=== PATIENT | male | born 1975 | race Caucasian/White ===

== ENCOUNTER 2022-08-04 10:18 | Emergency (ER) | payer OTHER, SELFPAY ==
[2022-08-04 10:21] VITALS: BP 149/94; PULSE 64; RESP 14; TEMP 36.7; O2SAT 99; BMI 34.0
[2022-08-04 11:00] VITALS: BP 127/88; PULSE 79; RESP 29; O2SAT 96
--- NOTE | 2022-08-04 11:03 | ED.CHESTPAIN ---
HPI - Chest Pain General Chief Complaint: Chest Pain Stated Complaint: Chest pain Time Seen by Provider: 08/04/22 10:50 History of Present Illness HPI narrative: This 46-year-old male comes in reporting some chest discomfort that he had encountered at about 2:00 a.m., 9 hours ago. He states that he woke up and had some discomfort along the parasternal area of his chest. He was able to change position and his symptoms improved. He awoke this morning and has some mild discomfort that he states is reproducible with certain movements or position. He denies having any nausea, vomiting, lightheadedness, shortness of breath, or diaphoresis. He states that he has good exercise tolerance. He does not have any chest discomfort when exerting himself. He does not report any recent injury event or strenuous activity. He states that his blood pressure and cholesterol are borderline. He is not taking any medications. He does not have diabetes or family history of heart disease. Related Data Home Medications Medication Instructions Recorded Confirmed loratadine 10 mg tablet 10 mg PO QDAY 02/17/22 02/17/22 Allergies Allergy/AdvReac Type Severity Reaction Status Date / Time No Known Allergies Allergy Unknown Verified 02/17/22 07:31 Review of Systems Status of ROS Reports: 10 or more systems reviewed and unremarkable except as noted in History and below Narrative Constitutional: No fevers, no weight gain or loss. Eyes: No discharge. No vision changes. HENT: No congestion, no sore throat, no ear pain. Cardiovascular: No palpitations. Chest discomfort as described above. Respiratory: No shortness of breath, no wheezes, no cough. Gastrointestinal: No abdominal pain, no vomiting, no diarrhea. Genitourinary: No dysuria, no hematuria. Musculoskeletal: Normal range of motion. Skin: No rashes, no pruritis. Neurological: No dizziness, weakness, sensory change, speech change. Endo/Heme/Allergies: No bruising or bleeding. No polydipsia. Pysch: no suicidality, no anxiety, no insomnia. All other systems reviewed and are negative. [facility] Surgical History (Updated 02/14/22 @ 08:38 by Tracy Bunn) History of appendectomy Family History (Updated 02/28/22 @ 14:33 by Jovon Flynn) Father Graves disease Asthma Brother Asthma Family/Other High blood pressure Lung cancer Other Thyroid disease Social History (Updated 02/17/22 @ 07:52 by Yordy Sweeney MD) Narrative: SOCIAL HISTORY: He is . He works as a software applications specialist. Mainly from home now. He has a 5-year-old son. He is sexually active. Exercise now is 2-3 days per week walking. Host friend x 4 yrs - associated stress. HABITS: No tobacco or recreational drug use. Alcohol use is about 3 drinks per week. Smoking Status: Smoker, status unknown Do you use any of these nicotine containing products: None Second hand tobacco smoke exposure: No How often do you have a drink containing alcohol: never How often do you have six or more drinks on one occasion: Never AUDIT-C Alcohol total score: 0 Non-prescribed substance use: denies use Little interest or pleasure in doing things: several days Feeling down, depressed, or hopeless: several days Exam Narrative Exam Narrative: Constitutional: Well-developed, well-nourished, no acute distress. HEENT: Normocephalic, atraumatic. Neck: Normal range of motion. Nontender. Supple. Heart: Regular. No murmurs. Normal rate. Intact distal pulses. Lungs: Clear to auscultation. No chest discomfort. No wheezes, rhonchi, or rales. Abdomen: Normal bowel sounds. Nontender. No rebound tenderness. Genitalia: Deferred. Back: No midline tenderness. Normal range of motion. Extremities: Normal range of motion. No injury. Skin: Intact. No rash. Warm. No erythema or pallor. Neurologic: No altered sensation. No weakness. Alert and oriented. Psychiatric: No suicidality. No anxiety or depression. No insomnia. Nursing notes and vitals signs are reviewed. Const Vital Signs, click to edit/add: Vital Signs - 24 hr 08/04/22 10:21 Temperature 98.1 F Pulse Rate [Right Pulse Oximeter] 64 Respiratory Rate 14 Blood Pressure [Right Upper Arm] 149/94 H Pulse Oximetry 99 Oxygen Delivery Method Room Air Course Vital Signs Vital signs: Initial Vital Signs Temperature 98.1 F 08/04/22 10:21 Temperature Source Temporal Artery Scan 08/04/22 10:21 Pulse Rate 64 08/04/22 10:21 Respiratory Rate 14 08/04/22 10:21 Blood Pressure 149/94 H 08/04/22 10:21 Blood Pressure Mean 112 08/04/22 10:21 Blood Pressure Position Sitting 08/04/22 10:21 Pulse Oximetry 99 08/04/22 10:21 Oxygen Delivery Method 08/04/22 10:21 Vital Signs Temperature 98.1 F 08/04/22 10:21 Pulse Rate 64 08/04/22 10:21 Respiratory Rate 14 08/04/22 10:21 Blood Pressure 149/94 H 08/04/22 10:21 Pulse Oximetry 99 08/04/22 10:21 Oxygen Delivery Method 08/04/22 10:21 Temperature 98.1 F 08/04/22 10:21 Pulse Rate 64 08/04/22 10:21 Respiratory Rate 14 08/04/22 10:21 Blood Pressure 149/94 H 08/04/22 10:21 Pulse Oximetry 99 08/04/22 10:21 Oxygen Delivery Method 08/04/22 10:21 MDM - Chest Pain MDM Narrative Medical decision making narrative: This patient comes in with some chest discomfort as described above. His EKG is completely normal. His troponin returns at 0. Other lab results also are all within normal range. This patient's pain is minimal and it is somewhat reproducible with certain positions indicating likelihood of chest wall pain. This was reassuring to the patient. He is okay to be discharged home and instructed to return if worsening symptoms occur. Lab Data Labs: Lab Results 08/04/22 08/04/22 08/04/22 Range/Units 11:55 11:55 12:05 WBC 5.99 (4.50-11.00) K/uL RBC 4.59 (4.30-5.90) m/uL Hgb 13.6 (13.5-17.5) gm/dL Hct 40.3 (37.0-53.0) % MCV 88 (80-100) fL MCH 30 (26-34) pg MCHC 34 (32-36) gm/dL RDW Coeff of Leann 14.0 (11.5-15.5) % Plt Count 314 (140-440) K/uL Neut % (Auto) 56.0 (42.0-72.0) % Lymph % (Auto) 33.9 (20-44) % Sibley % (Auto) 6.2 (0.0-11.0) % Eos % (Auto) 3.2 (0.0-7.0) % Baso % (Auto) 0.7 (0.0-3.0) % Neut # (Auto) 3.36 (1.7-7.0) K/uL Lymph # (Auto) 2.03 (0.90-2.90) K/uL Sibley # (Auto) 0.40 (0.00-0.90) K/UL Eos # (Auto) 0.19 (0.00-0.50) K/uL Baso # (Auto) 0.04 (0.00-0.30) K/uL Sodium 139 (135-149) mmol/L Potassium 4.3 (3.6-5.1) mmol/L Chloride 107 (96-114) mmol/L Carbon Dioxide 24 (20-32) mmol/L BUN 14 (5-24) mg/dL Creatinine 0.7 (0.5-1.5) mg/dL Estimated Creat Clear 134.67 Estimated GFR 117 ml/min Glucose 104 (60-115) mg/dL Calcium 8.9 (8.4-10.6) mg/dL POC Troponin I 0.00 L (0.01-0.04) ng/ml ECG Data Attestation: I personally reviewed and interpreted this ECG as follows: Interpretation: Normal sinus rhythm. Rate is 64 beats per minute. There are no ST or T-wave abnormalities. Discharge Plan Discharge Clinical Impression: Atypical chest pain Patient Disposition: Home, Self-Care Condition: Stable Additional Instructions: Take [id number] medications as needed and indicated. Follow up with MD or return if worsening. Prescriptions: No Action loratadine 10 mg tablet 10 mg PO QDAY Follow Up/Referrals: Yordy Sweeney MD [Primary Care Provider] - Stand Alone Forms: [employer] Info Instructions
[2022-08-04 11:30] VITALS: BP 124/86; PULSE 54; RESP 17; O2SAT 96
[2022-08-04 12:00] VITALS: BP 120/85; PULSE 62; RESP 17; O2SAT 94
[2022-08-04 12:07] LABS: Basophils Absolute Auto 0.04 K/uL (0.00-0.30); Basophils Percent Auto 0.7 % (0.0-3.0); Eosinophils Absolute Auto 0.19 K/uL (0.00-0.50); Eosinophils Percent Auto 3.2 % (0.0-7.0); Hematocrit 40.3 % (37.0-53.0); Hemoglobin* 13.6 gm/dL (13.5-17.5); Lymphocytes Absolute Auto 2.03 K/uL (0.90-2.90); Lymphocytes Percent Auto 33.9 % (20-44); Mean Corpuscular HGB Conc 34 gm/dL (32-36); Mean Corpuscular Hemoglobin 30 pg (26-34); Mean Corpuscular Volume 88 fL (80-100); Monocytes Percent Auto 6.2 % (0.0-11.0); Neutrophils Absolute Auto 3.36 K/uL (1.7-7.0); Platelet Count* 314 K/uL (140-440); Red Blood Count 4.59 m/uL (4.30-5.90); White Blood Count* 5.99 K/uL (4.50-11.00)
[2022-08-04 12:16] LABS: Slide Review Reflex No
[2022-08-04 12:18] LABS: Chloride* 107 mmol/L (96-114)
[2022-08-04 12:19] LABS: Potassium* 4.3 mmol/L (3.6-5.1); Sodium* 139 mmol/L (135-149)
[2022-08-04 12:21] LABS: Creatinine* 0.7 mg/dL (0.5-1.5); Est. Creatinine Clearance* 134.67; Estimated Glomerular Filt Rate 117 ml/min
[2022-08-04 12:22] LABS: Blood Urea Nitrogen* 14 mg/dL (5-24); Calcium* 8.9 mg/dL (8.4-10.6); Carbon Dioxide* 24 mmol/L (20-32); Glucose* 104 mg/dL (60-115)
[2022-08-04 12:30] VITALS: BP 137/90; PULSE 58; RESP 16; O2SAT 98
== END 2022-08-04 12:48 | disposition home or self-care (01) ==
PROVIDERS: Emergency Provider Emergency Medicine Emergency Medical Services; PCP Family Medicine
DX: R07.89 Other chest pain (principal)
CPT/HCPCS: 36415; 80048; 84484; 85025; 93005; 99284

== ENCOUNTER 2023-02-17 08:00 | Outpatient (CLI) | payer OTHER, SELFPAY | END 2023-02-17 08:01 | disposition home or self-care (01) | PROVIDERS: PCP Family Medicine; Referring Provider Family Medicine; Visit Provider Family Medicine | DX: E78.5 Hyperlipidemia, unspecified (principal); R73.03 Prediabetes; E66.9 Obesity, unspecified | CPT/HCPCS: 80053; 80061 ==

== ENCOUNTER 2023-03-13 10:32 | Outpatient (CLI) | payer OTHER, SELFPAY ==
--- NOTE | 2023-03-13 12:41 | W.ANESCHARGE ---
Anesthesia Charges Start Date/Time Anesthesia Start Date: 03/13/23 Anesthesia Start Time: 11:57 Stop Date/Time Anesthesia Stop Date: 03/13/23 Anesthesia Stop Time: 12:38
== END 2023-03-13 10:33 | disposition home or self-care (01) ==
LOC: OP CLINIC 10:32
PROVIDERS: PCP Family Medicine; Visit Provider Surgery
DX: Z12.11 Encounter for screening for malignant neoplasm of colon (principal)
CPT/HCPCS: 45378; 812; J2704

== ENCOUNTER 2023-04-06 07:14 | Day surgery (SDC) | payer OTHER, SELFPAY ==
[2023-04-06] VITALS (14 sets, daily range): BP systolic 103–127; BP diastolic 64–90; PULSE 63–81; RESP 14–18; TEMP 36.2–36.8; O2SAT 93–98; BMI 34.4
[2023-04-06] MEDS: SODIUM CHLORIDE 0.9 % (FLUSH) 10 ML SYRINGE IVF (07:45)
[2023-04-06] MEDS: LACTATED RINGERS 1000 ML 1,000 ML 100 ML IV (07:45)
--- NOTE | 2023-04-06 07:59 | PM.GSPRC ---
Operative Note Pre-op diagnosis: Umbilical hernia Post-op diagnosis: Same Type of Procedure: Open umbilical hernia repair with mesh - 2cm. Indications: The patient is a 47-year-old male who presented to clinic with an increasingly symptomatic umbilical hernia. After discussion options he agreed to proceed with repair. Procedure Description: After discussing the risks and benefits of the procedure, the patient signed informed consent.? The operative site was marked and the patient was brought to the operating room and placed on the operating table in supine position.? Care was taken to pad the patient's pressure points.?? The patient was then intubated by anesthesia.?? The operative site was then prepped and draped in the usual sterile fashion.? A time-out was then performed. Local anesthetic was injected into the fascia, skin and subcutaneous tissues. A curvilinear incision was made at the umbilicus. Dissection was carried down into the subcutaneous tissue using cautery. The hernia sac was encountered and care was taken to not enter it. Dissection was taken down to the fascia, and the umbilical stalk was carefully dissected off of the hernia sac. A preperitoneal fat containing hernia was found. Once the fascia was dissected out circumferentially, the hernia was reduced. The hernia was 2 cm in size and so the decision was made to use a piece of mesh. A preperitoneal pocket was created using a combination of blunt dissection and cautery. Hemostasis appeared adequate. Once the posterior fascia was clear, a piece of small Ventralex ST hernia mesh was placed in the preperitoneal space with care to ensure that it laid flat. This was secured into place using 2 0 PDS interrupted sutures. The tails were then trimmed and the fascial opening was closed with 0 Vicryl in a [id number] fashion. The umbilicus was reapproximated to the fascia. The skin was then closed with running absorbable suture. Glue was then applied. ? The patient was then woken and transported to the recovery area in stable condition. ? The patient tolerated the procedure well. Findings: 2 cm fat containing umbilical hernia Implants: Ventralex ST mesh Surgeon: Tracy Galvez MD Estimated blood loss (mL): 10 Condition: stable Disposition: PACU Date of procedure: 04/06/23
[2023-04-06] MEDS: CEFAZOLIN 2 GM INJ IVP (09:27)
[2023-04-06] MEDS: BUPIVACAINE 0.25% 30 ML INJECTION (09:32)
--- NOTE | 2023-04-06 10:39 | W.ANESCHARGE ---
Anesthesia Charges Start Date/Time Anesthesia Start Date: 04/06/23 Anesthesia Start Time: 09:14 Stop Date/Time Anesthesia Stop Date: 04/06/23 Anesthesia Stop Time: 10:38
[2023-04-06] MEDS: HYDROCODONE-ACETAMIN 5-325 MG 1 TAB PO (11:36)
== END 2023-04-06 12:45 | disposition home or self-care (01) ==
PROVIDERS: PCP Family Medicine; Visit Provider Surgery
PROC: (CPT 49591; principal; 2023-04-06 08:30)
DX: K42.9 Umbilical hernia without obstruction or gangrene (principal)
CPT/HCPCS: 49591; 00830; A9270; C1781; J0665; J0690; J1100; J1170; J1885; J2250; J2405; J2704; J3010; J7120

== ENCOUNTER 2024-12-03 08:20 | Outpatient (CLI) | payer OTHER, SELFPAY | END 2024-12-03 08:21 | disposition home or self-care (01) | LOC: NFLDREF 12-04 00:51 | PROVIDERS: PCP Family Medicine; Referring Provider Family Medicine; Visit Provider Family Medicine | DX: R73.03 Prediabetes (principal); Z13.6 Encounter for screening for cardiovascular disorders | CPT/HCPCS: 80061; 80076; 82947 ==

== ENCOUNTER 2024-12-05 14:40 | Outpatient (CLI) | payer OTHER, SELFPAY | END 2024-12-05 14:41 | disposition home or self-care (01) | LOC: NFLDREF 14:41 | PROVIDERS: PCP Family Medicine; Visit Provider Family Medicine | DX: R06.83 Snoring (principal); R53.83 Other fatigue | CPT/HCPCS: 84443 ==

== ENCOUNTER 2024-12-24 11:45 | Outpatient (CLI) | payer OTHER, SELFPAY ==
--- NOTE | 2024-12-31 11:31 | W.PM.SLEEP ---
Sleep Study Details Details Interpreting Provider: Wei Date of Sleep Study: 12/24/2024 Sleep Study Details: STUDY TYPE:? Home unattended ? BMI:? 37.6 ORDERING PROVIDER:? Zahra INDICATION:? Concerned about sleep apnea ? SLEEP SUMMARY:? 435 minutes monitored RESPIRATORY SUMMARY:? AHI 33.2 Low oxygen 75 13.7% of study oxygen less than 90% Snoring 100% PERIODIC LIMB MOVEMENTS OF SLEEP:? Not recorded CARDIAC:? Range 40-102, mean 70.7 beats per minute IMPRESSION:? Severe obstructive sleep apnea with significant desaturations RECOMMENDATION: Weight loss is recommended. Main treatment option for this level of apnea would be CPAP or bilevel.
== END 2024-12-24 11:46 | disposition home or self-care (01) ==
LOC: SLEEP 01-01 14:26
PROVIDERS: PCP Family Medicine; Visit Provider Family Medicine
DX: G47.33 Obstructive sleep apnea (adult) (pediatric) (principal)
CPT/HCPCS: 95806